=== PATIENT | male | born 2000 | race American Indian/Alaskan Native ===

== ENCOUNTER 2021-06-13 02:26 | Emergency (ER) | payer OTHER ==
[2021-06-13 02:32] VITALS: BP 136/91
[2021-06-13] MEDS ORDERED: IBUPROFEN 800 MG TAB PO ONE (02:51)
[2021-06-13] MEDS ORDERED: TETANUS,DIPH,PERTUSS(ACELL) VACCINE 0.5 ML SYRINGE IM ONE (02:51)
[2021-06-13] MEDS ORDERED: LIDOCAINE (1%) 10 MG/1 ML VIAL 20 ML MDV INFILTRATI ONE (02:51)
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
== END 2021-06-13 04:15 | disposition home or self-care (01) ==
LOC: ED 02:26
DX: S61.411A Laceration without foreign body of right hand, initial encounter (principal); W26.0XXA Contact with knife, initial encounter; Y93.89 Activity, other specified; Y92.89 Other specified places as the place of occurrence of the external cause; Y99.8 Other external cause status; Z91.010 Allergy to peanuts
CPT/HCPCS: 12002; 90471; 90715; 99282; J3490

== ENCOUNTER 2021-06-28 17:19 | Emergency (ER) | payer OTHER ==
[2021-06-28 17:42] VITALS: BP 136/71
--- NOTE | 2021-06-28 19:15 | Emergency Department Report ---
Suture/Staple Removal - [facility] Chief Complaint: Laceration/Recheck/Suture Stated Complaint: SUTURE REMOVAL Time Seen by Provider: 06/28/21 17:44 When Sutures or Shauna Placed: >14 Days Ago Wound Location: left hand ED Review of Systems ROS: Stated complaint: SUTURE REMOVAL Other details as noted in HPI Comment: All other systems reviewed and negative Constitutional: denies: chills, fever Eyes: denies: eye pain, eye discharge, vision change ENT: denies: ear pain, throat pain Respiratory: denies: cough, shortness of breath, wheezing Cardiovascular: denies: chest pain, palpitations Endocrine: no symptoms reported Gastrointestinal: denies: abdominal pain, nausea, diarrhea Genitourinary: denies: urgency, dysuria Musculoskeletal: denies: back pain, joint swelling, arthralgia Skin: denies: rash, lesions Neurological: denies: headache, weakness, paresthesias Psychiatric: denies: anxiety, depression Hematological/Lymphatic: denies: easy bleeding, easy bruising ED Past Medical Hx - Medications Home Medications: Home Medications Medication Instructions Recorded Confirmed Last Taken Type Ibuprofen [Motrin] 800 mg PO Q8HR PRN #30 tablet 06/13/21 Unknown Rx cephALEXin [Keflex] 500 mg PO Q8HR #30 cap 06/13/21 Unknown Rx Suture Removal Exam - Exam General: Vital signs noted. No distress. Alert and acting appropriately. Wound: No Pathologic Erythema, No Tenderness, No Drainage, No Pus, No Wound Dehiscence Other Systems: All other systems reviewed and are unremarkable. ED Course Vital Signs 06/28/21 17:36 Temperature 98.7 F Pulse Rate 72 Respiratory 16 Rate Blood Pressure 136/71 O2 Sat by Pulse 100 Oximetry - Reevaluation(s) Reevaluation #1: 06/28/21 19:11 Patient is speaking in full sentences with no signs of distress noted. ED Recheck MDM - Medical Decision Making This is a 20-year-old male that presents with suture removal. She is stable and was examined by me. Total of 15 sutures has been removed and patient tolerated well. No signs of wound dehiscence, drainage, or cellulitis. Steri-Strips has been applied and was instructed to the patient to keep it on for the next 7 days due to anatomy of the hand. Patient was referred to Follow-up with a primary care doctor in 3-5 days or if symptoms worsen and continue return to emergency room as soon as possible. At time of discharge, the patient does not seem toxic or ill in appearance. No acute signs of distress noted. Patient agrees to discharge treatment plan of care. No further questions noted by the patient. Critical care attestation.: If time is entered above; I have spent that time in minutes in the direct care of this critically ill patient, excluding procedure time. ED Disposition Clinical Impression: Encounter for removal of sutures Disposition: 01 HOME / SELF CARE / HOMELESS Is pt being admited?: No Does the pt Need Aspirin: No Condition: Stable Instructions: Suture Removal, Care After Additional Instructions: Follow-up with a primary care doctor in 3-5 days or if symptoms worsen and continue return to emergency room as soon as possible. Referrals: PRIMARY CAREMD [Primary Care Provider] - 3-5 Days ELLIOT ALONZO MD [Staff Physician] - 3-5 Days Time of Disposition: 19:16
== END 2021-06-28 19:00 | disposition home or self-care (01) ==
LOC: ED 17:19
DX: Z48.02 Encounter for removal of sutures (principal)

== ENCOUNTER 2021-07-07 17:17 | Emergency (ER) | payer OTHER | END 2021-07-08 04:39 | LOC: ED 17:17 | DX: Z48.02 Encounter for removal of sutures (principal); Z53.21 Procedure and treatment not carried out due to patient leaving prior to being seen by health care provider ==